=== PATIENT | male | born 1970 | race Caucasian/White ===

== ENCOUNTER 2018-10-08 10:07 | Emergency (ER) | payer MEDICAID ==
[2018-10-08 10:19] VITALS: BP 132/77
[2018-10-08] MEDS ORDERED: ONDANSETRON DISINTEGRATING 4 MG TAB PO ONE (10:45)
--- NOTE | 2018-10-08 10:51 | EDPHY ---
H & P Time Seen by Provider: 10/08/18 10:10 HPI/ROS: CHIEF COMPLAINT: Headache, back pain HISTORY OF PRESENT ILLNESS: Patient states"it is the worst pain I have been in years". Complaining of low back pain, headache, acute on chronic with history of scoliosis. He states"I can not move, can't stand up."He did take 1 Flexeril this morning that he had left over from previous prescription which is helping. He has tried a heating pad which helped a little bit but otherwise no relief from [id number] medications. He is out of meloxicam. He also states he has got nausea. He states yesterday he did lift something at work which made his pain much worse but that the pain started about 4 days ago. He denies incontinence of urine or stool. No numbness or tingling to lower extremities. Complains of pain radiating down both legs but left more than right. No fevers. No vomiting or diarrhea. REVIEW OF SYSTEMS: Constitutional: No fever, no chills. Eyes: No discharge. ENT: No sore throat. Cardiovascular: No chest pain, no palpitations. Respiratory: No cough, no shortness of breath. Gastrointestinal: No abdominal pain, nausea, no vomiting. Genitourinary: No dysuria. No incontinence, no urinary retention. Musculoskeletal: Back pain present, neck pain present. Skin: No rashes. Neurological: Headache present. General Appearance: Alert, uncomfortable appearing. Eyes: Pupils equal and round no pallor or injection. ENT, Mouth: Mucous membranes moist. Respiratory: There are no retractions, lungs are clear to auscultation. Cardiovascular: Regular rate and rhythm. Gastrointestinal: Abdomen is soft and nontender, no masses, bowel sounds normal. Neurological: Cranial nerves intact, and movement all 4 extremities, normal strength and sensation. Normal lower extremity reflexes, no clonus. No saddle paresthesia. Skin: Warm and dry, no rashes. Musculoskeletal: Neck is supple nontender. Extremities are symmetrical, full range of motion, no edema. Psychiatric: Patient is oriented X 3, there is no agitation. Medical/surgical history: Scoliosis with chronic back pain, hypertension, pancreatitis, orthopedic surgeries, appendicitis. Social history: Denies tobacco, occasional cannabis and EtOH. Smoking Status: Never smoked Constitutional: Initial Vital Signs Temperature (C) 36.3 C 10/08/18 10:13 Heart Rate 69 10/08/18 10:13 Respiratory Rate 16 10/08/18 10:13 Blood Pressure 132/77 H 10/08/18 10:13 O2 Sat (%) 97 10/08/18 10:13 O2 Delivery Mode Room Air Allergies/Adverse Reactions: No Known Allergies Allergy (Verified 10/08/18 10:12) Home Medications: Medication Instructions Recorded Lidocaine [Lidoderm] 1 each TP DAILY PRN #30 adh..patch 07/09/18 Cyclobenzaprine [Flexeril 10 MG 10 mg PO TID PRN #21 tab 10/08/18 (*)] Meloxicam 7.5 mg PO DAILY #14 tablet 10/08/18 Medical Decision Making Differential Diagnosis: Differential diagnosis includes but is not limited to acute on chronic musculoskeletal back pain, cauda equina, herniated disc, migraine. After evaluation suspect exacerbation of his chronic neck and back pain secondary to body motions yesterday. No signs of neurologic deficit or impending neuro- surgical emergency. Discussed follow-up with primary care and need to see pain specialist and/or commercial marketing specialist. Patient verbalizes multiple barriers to care including his work schedule, school schedule, lack of finances and Medicaid insurance. Will prescribe both Flexeril and meloxicam for symptomatic care. He understands follow-up and referrals. Stable for discharge. - Data Points Medications Given: Discontinued Medications Acetaminophen (Tylenol) 1,000 mg PO EDNOW ONE Stop: 10/08/18 11:02 Last Admin: 10/08/18 11:04 Dose: 1,000 mg Ondansetron HCl (Zofran Odt) 4 mg PO EDNOW ONE Stop: 10/08/18 10:46 Last Admin: 10/08/18 11:04 Dose: 4 mg Departure - Departure Clinical Impression: Back pain Qualifiers: Back pain location: back pain in unspecified location Chronicity: chronic Back pain laterality: unspecified Qualified Code(s): M54.9 - Dorsalgia, unspecified Condition: Fair Instructions: Cyclobenzaprine (By mouth), Meloxicam (By mouth), Chronic Back Pain (DC) Additional Instructions: Use Flexeril and meloxicam as discussed. It is important that he follow up with her primary care physician and pursue physical therapy. Also you can follow up with the spine doctors at [facility] or Dr. John for evaluation of your chronic back pain. I highly recommend use ice. Ibuprofen as needed is safe also. Referrals: Brenda Chandler MD [Primary Care Provider] - As per Instructions Loan John [Medical Doctor] - As per Instructions Prescriptions: Cyclobenzaprine [Flexeril 10 MG (*)] 10 mg PO TID PRN #21 tab PRN Reason: Spasms Meloxicam 7.5 mg PO DAILY #14 tablet
[2018-10-08] MEDS ORDERED: ACETAMINOPHEN 500 MG TAB PO ONE (11:01)
== END 2018-10-08 11:06 | disposition home or self-care (01) ==
LOC: CED 10:07
DX: R51 Headache (principal); M54.9 Dorsalgia, unspecified; G89.29 Other chronic pain; I10 Essential (primary) hypertension